=== PATIENT | male | born 1990 | race African-American/Black ===

== ENCOUNTER 2019-10-31 05:53 | Day surgery (SDC) | payer OTHER ==
[2019-10-27 10:05] VITALS: BMI 25.2
[2019-10-31] MEDS ORDERED: PROPOFOL 20 ML ONE ×3 (07:05)
[2019-10-31] MEDS ORDERED: ONDANSETRON 4 MG/2 ML VIAL ONE (07:06)
[2019-10-31] MEDS ORDERED: DEXAMETHASONE SOD PHOSPHATE 4 MG/1 ML VIAL ONE (07:06)
[2019-10-31] MEDS ORDERED: KETOROLAC TROMETHAMINE 30 MG/1 ML VIAL ONE (07:06)
[2019-10-31] MEDS ORDERED: ceFAZolin SODIUM 1 GM VIAL ONE (07:06)
[2019-10-31] MEDS ORDERED: LIDOCAINE HCL/PF 2% SDV 5ML VIAL ONE (07:06)
[2019-10-31] MEDS ORDERED: SODIUM CHLORIDE 0.9% P/F 10 ML VIAL IJ ONE (07:06)
[2019-10-31] MEDS ORDERED: MIDAZOLAM HCL 2 MG/2 ML SINGLE DOSE VIAL ONE ×3 (07:07→07:11)
[2019-10-31] MEDS ORDERED: SUCCINYLCHOLINE CHLORIDE 200 MG/10 ML SYRINGE ONE (07:08)
[2019-10-31] MEDS ORDERED: EPINEPHrine 1:1,000 1 MG/1 ML - 30ML VIAL (INJECTION) ONE (07:09)
[2019-10-31] MEDS ORDERED: EPHEDRINE SULFATE/0.9% NACL/PF 50 MG/10 ML SYRINGE NR ONE (07:09)
[2019-10-31] MEDS ORDERED: ROPIVACAINE HCL 0.5% 30ML VIAL ONE (07:11)
[2019-10-31] MEDS ORDERED: ONDANSETRON 4 MG/2 ML VIAL IVPUSH PRN (07:15)
[2019-10-31] MEDS ORDERED: LACTATED RINGERS SOLUTION 1,000 ML IV SCH (07:15)
[2019-10-31] MEDS ORDERED: oxyCODONE HCL 5 MG TABLET PO PRN ×2 (07:15)
[2019-10-31 12:32] VITALS: PULSE 65
[2019-10-31 13:19] VITALS: BP 135/85; TEMP 98.2
--- NOTE | 2019-11-01 11:05 | OP ---
DATE OF OPERATION: 10/31/2019 PREOPERATIVE DIAGNOSIS: Torn rotator cuff, left shoulder, with impingement to the left shoulder. POSTOPERATIVE DIAGNOSES: 1. 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 2. Glenoid labral tear, left shoulder. 3. Impingement from the lateral clavicle to the left shoulder. 4. Tear of left shoulder rotator cuff. 5. Impingement from the acromion to the left shoulder. 6. Extensive joint debris, left shoulder. 7. Extensive hypertrophic bursal tissue, left shoulder. PROCEDURE PERFORMED: 1. Manipulation under anesthesia with lysis and resection of adhesions to the left shoulder. 2. Glenoid labral resection to the left shoulder. 3. Lateral clavicular resection to the left shoulder, a Nusrat procedure. 4. Debridement of the rotator cuff tear to the left shoulder. 5. Acromioplasty to the left shoulder with acromial resection. 6. Extensive joint debridement to the left shoulder. 7. Extensive bursectomy to the subacromial space to the left shoulder. 8. Plastic Surgical closure to the left shoulder. SURGEON: Cale Salas MD ROVING TECHNICIAN: AMRIT Burnham ANESTHESIA: Dr. Hunt. TYPE OF ANESTHESIA: Interscalene block to the left shoulder. The procedure consisted of the patient being brought into the operating room and gently transferred from the stretcher to the OR table with all bony prominences well padded. The left shoulder was prepared and draped in a sterile fashion. The patient was given intravenous antibiotics and copious irrigation throughout the procedure to minimize risk for infection. A complete risk/benefit/alternative discussion was conducted with the patient which is inclusive of but not limited to infection, bleeding, , paralysis, increased pain, need for repeat surgery. The patient asked questions, understood the procedure, and desired to proceed with surgical treatment. Following sterile preparation and draping of the left shoulder, the patient had been placed in the [id number] lateral decubitus position with all bony prominences well padded. A pillow had been placed below the legs and between the legs to protect the neurovascular structures to the legs. The body was supported by a pneumatic conforming beanbag cushion. An axillary roll had been placed to protect the lower shoulder. The neck was kept in good alignment to the thoracic spine by the anesthesiologist. The face was protected throughout the procedure by the anesthesiologist. Following sterile preparation and draping of the left shoulder, the left shoulder had been gently manipulated under anesthesia with a slow, steady manipulation. The patient, prior to movement and manipulation of the left shoulder, had range of movement abduction 90 degrees, flexion 85 degrees, extension 10 degrees, internal rotation 70 degrees, external rotation 10 degrees. Following the manipulation, abduction was 165 degrees, flexion 165 degrees, extension 30 degrees, internal rotation 90 degrees, external rotation 20 degrees. Gentle traction of approximately 8 pounds had been applied across the shoulder joint. Anterior, posterior, and lateral portals had been used to introduce the arthroscope and arthroscopic instruments. The glenohumeral joint had been evaluated. There were noted to be adhesions within the joint, and these were lysed and resected. There was noted to be extensive joint debris within the joint, and extensive joint debridement was performed. Anterior and posterior recesses were without loose body. Middle glenohumeral ligament and biceps tendon were found to be intact. The attachment of the biceps was firm. There was noted to be tearing of the glenoid labrum, and the tears were resected using shaver and radiofrequency wand with a glenoid labral resection. There was noted to be tearing of the rotator cuff on the articular side, and this was probed and found to be partial thickness. This was debrided using shaver and radiofrequency wand. The should joint was copiously irrigated, and our attention was turned to the subacromial space. There was noted to be extensive hypertrophic bursal tissue, and extensive bursectomy was performed. There was noted to be a tear of the bursal side rotator cuff, and this was debrided using shaver and radiofrequency wand. The outer edge of the acromion was found to be creating impingement. This was debrided, and acromioplasty was performed with resection of the acromion with a wedge of bone anteriorly then posteriorly. Lateral clavicle was also creating impingement. This was debrided using shaver and radiofrequency wand, and high-speed aura with the shaver were used to resect the lateral clavicle. A Nusrat procedure was performed. The shoulder was copiously irrigated, and the wounds were closed in a plastic surgical fashion with subcuticular 4-0 undyed Vicryl. A dressing of Steri-Strips, Xeroform, 4 x 4s, combine, Elastoplast, and a shoulder immobilizer was then placed. The patient was then gently awoken from anesthesia and transferred from the operating room to the recovery room in excellent condition. There were no intraoperative complications. Josh Zepeda was critical for assisting during surgery, holding the arthroscope I used the drill and arthroscopic instruments. He provided critical support and safety in surgical treatment. CALE SALAS M.D. [id number]
== END 2019-10-31 12:45 | disposition home or self-care (01) ==
LOC: FASU 05:53
PROVIDERS: ATTEND Orthopaedic Surgery
PROC: 0PBB4ZZ Excision of Left Clavicle, Percutaneous Endoscopic Approach (ICD-10-PCS; 2019-10-31)
PROC: 0RBK4ZZ Excision of Left Shoulder Joint, Percutaneous Endoscopic Approach (ICD-10-PCS; 2019-10-31)
PROC: 0LQ24ZZ Repair Left Shoulder Tendon, Percutaneous Endoscopic Approach (ICD-10-PCS; principal; 2019-10-31 08:37)
DX: M75.102 Unspecified rotator cuff tear or rupture of left shoulder, not specified as traumatic (principal); M75.02 Adhesive capsulitis of left shoulder; M75.42 Impingement syndrome of left shoulder; M24.112 Other articular cartilage disorders, left shoulder; M75.52 Bursitis of left shoulder; M24.012 Loose body in left shoulder
CPT/HCPCS: 94760